=== PATIENT | male | born 1980 | race Caucasian/White ===

== ENCOUNTER 2023-02-04 10:26 | Day surgery (SDC) | payer OTHER ==
[~2023-02-04] VITALS: Ht 160 cm; Wt 37.6 kg
[2023-02-04] MEDS ORDERED: fentaNYL citrate 0.05 MG/ML VIAL ONE (12:36)
[2023-02-04] MEDS ORDERED: LIDOCAINE 2% 100 MG/5 ML UJET TP ONE (12:37)
[2023-02-04] MEDS ORDERED: MIDAZOLAM 5 MG/5 ML VIAL ONE (12:38)
[2023-02-04] MEDS ORDERED: MIDAZOLAM 2 MG/2 ML VIAL IVP ONE (15:55)
[2023-02-04] MEDS ORDERED: fentaNYL citrate 0.05 MG/ML VIAL IVP ONE (15:55)
== END 2023-02-04 13:53 | disposition home or self-care (01) ==
LOC: MDS 10:26 → MMU 10:27 → MDS 13:53
PROVIDERS: ATTEND Internal Medicine Gastroenterology
DX: K52.9 Noninfective gastroenteritis and colitis, unspecified (principal); E03.9 Hypothyroidism, unspecified; Q90.9 Down syndrome, unspecified; Z79.899 Other long term (current) drug therapy
CPT/HCPCS: 45380; 88305; J2250; J3010